=== PATIENT | female | born 1985 | race Caucasian/White ===

== ENCOUNTER → 2016-12-02 | Outpatient (CLI) | payer OTHER ==
--- NOTE | 2016-12-02 15:17 | US ---
Ultrasound Pelvis Complete (Transabdominal and Endovaginal) History: Dysfunctional uterine bleeding in a 31-year-old female.. Technique: Transabdominal and endovaginal ultrasound images were obtained. Endovaginal images obtain ed for better evaluation of the uterine myometrium and adnexa. Color Doppler evaluation was employed for assessment of vascularity. Findings: The arcuate uterus is normal in size and measures 9.4 x 3.6 x 6.0 cm. The endometrial measu res 0.8 cm in thickness. A small amount of fluid is seen in the endometrial canal in the lower uterin e segment. No masses are seen. The ovaries are normal in size. The right ovary measures 2.2 x 1.4 x 2 .6 cm and the left ovary measures 3.6 x 2.9 x 2.0 cm. Follicular cysts are noted bilaterally. No adn exal masses. A trace of free fluid is identified in the pelvis. Color and pulsed Doppler flow is iden tified in both ovaries . Impression: Normal pelvic ultrasound in a 31-year-old female.
== END ==
LOC: BMCIMAGING 11:41
PROVIDERS: ATTEND Internal Medicine
DX: N93.9 Abnormal uterine and vaginal bleeding, unspecified (principal)